=== PATIENT | female | born 1965 | race Caucasian/White ===

== ENCOUNTER → 2016-05-27 | Outpatient (CLI) | payer OTHER ==
--- NOTE | 2016-05-28 07:16 | MM ---
Reason for exam: additional evaluation requested from prior study. Last mammogram was performed 1 year and 4 months ago. History: Patient is postmenopausal. Family history of breast cancer in maternal grandmother at age 45 and breast cancer in maternal aunt at age 45. Benign US RT VAD breast biopsy of the right breast, December 14, 2012. Benign US right core biopsy of the right breast, January 26, 2006. Physical Findings: Nurse did not find any significant physical abnormalities on exam. MG Diagnostic Mammo w CAD JENNIFER Bilateral CC and MLO view(s) were taken. ML and spot compression MLO view(s) were taken of the left breast. Prior study comparison: January 21, 2015, bilateral MG diagnostic mammo w CAD JENNIFER. July 10, 2013, CAD bilateral diagnostic mammogram. November 30, 2012, bilateral digital screening mammo w/CAD. The breast tissue is heterogeneously dense. This may lower the sensitivity of mammography. Nodular asymmetric density upper outer quadrant right breast with 2 microclips, more defined from 2014 but similar to 2013, can be reassessed in 6 months. Nodular asymmetry inferior left breast measures 1.3cm and persists on additional views. These results were verbally communicated with the patient and result sheet given to the patient on 05/27/16. ASSESSMENT: Incomplete: need additional imaging evaluation, BI-RAD 0 RECOMMENDATION: Ultrasound of the left breast. (3-9 o'clock inferior half)
--- NOTE | 2016-05-28 07:19 | USB ---
Reason for exam: additional evaluation requested from abnormal screening. History: Patient is postmenopausal. Family history of breast cancer in maternal grandmother at age 45 and breast cancer in maternal aunt at age 45. Benign US RT VAD breast biopsy of the right breast, December 14, 2012. Benign US right core biopsy of the right breast, January 26, 2006. US Breast Limited LT Left breast ultrasound demonstrates two complex cystic mass versus cyst clusters measuring 0.65 x 0.63 x 0.49cm at 3 o'clock and a 1.2 x 0.45 x 0.93cm at 6 o'clock. The 6 o'clock lesion likely corresponds to the mammographic abnormality. These should be reassessed in 6 months. These results were verbally communicated with the patient and result sheet given to the patient on 05/27/16. ASSESSMENT: Probably benign, BI-RAD 3 RECOMMENDATION: Follow-up diagnostic mammogram in 6 months. (right breast) Ultrasound of the left breast in 6 months. (3 and 6 o'clock)
== END ==
LOC: RADMAMWWP 13:43
PROVIDERS: ATTEND Family Medicine
DX: R92.2 Inconclusive mammogram (principal); R92.8 Other abnormal and inconclusive findings on diagnostic imaging of breast
CPT/HCPCS: 76642; G0204

== ENCOUNTER → 2016-06-18 | Outpatient (CLI) | payer OTHER ==
--- NOTE | 2016-06-18 15:13 | US ---
EXAMINATION TYPE: US pelvis complete transvag DATE OF EXAM: 06/18/2016 3:05 PM COMPARISON: NONE CLINICAL HISTORY: N83.20 LT PREV.OVARIAN CYST. TECHNIQUE: Transvaginal (TV) and Transabdominal (TA) Date of LMP: 12 years prior EXAM MEASUREMENTS: Uterus: Surgically absent cm Endometrial Stripe: Surgically absent cm Right Ovary: 2.6 x 2.2 x 2.0 cm Left Ovary: not visualized due to overlying bowel gas TECHNOLOGIST IMPRESSION: 1. Uterus: surgically absent 2. Endometrium: surgically absent 3. Right Ovary: wnl 4. Left Ovary: not visualized due to overlying bowel gas 5. Bilateral Adnexa: wnl 6. Posterior cul-de-sac: wnl IMPRESSION: 1. Normal post hysterectomy pelvic ultrasound
== END | disposition home or self-care (01) ==
LOC: RADUSWWP 13:37
PROVIDERS: ATTEND Obstetrics & Gynecology
DX: N83.209 Unspecified ovarian cyst, unspecified side (principal); N83.9 Noninflammatory disorder of ovary, fallopian tube and broad ligament, unspecified; Z90.710 Acquired absence of both cervix and uterus
CPT/HCPCS: 36415; 76830; 76856; 86304

== ENCOUNTER → 2018-04-19 | Outpatient (CLI) | payer OTHER ==
[2018-04-19 13:26] LABS: Appearance,Urine Cloudy (Clear); Bacteria,Urine Rare /hpf; Bilirubin,Urine Negative (Negative); Blood,Urine Small (Negative); Color,Urine Yellow; Glucose,Urine (UA) Negative (Negative); Ketones,Urine Trace (Negative); Leukocyte Esterase,Urine Large (Negative); Mucus,Urine Occasional /hpf; Nitrite,Urine Negative (Negative); Protein,Urine Negative (Negative); RBC,Urine 9 /hpf (0-5); Specific Gravity,Urine 1.012 (1.001-1.035); Squamous Epithelial Cell,Urine 6 /hpf (0-4); Urobilinogen,Urine <2.0 mg/dL (<2.0); WBC,Urine >182 /hpf (0-5)
== END | disposition home or self-care (01) ==
LOC: LABWHC1 11:53
PROVIDERS: ATTEND Obstetrics & Gynecology
DX: N39.0 Urinary tract infection, site not specified (principal)
CPT/HCPCS: 81001; 87086

== ENCOUNTER 2018-08-03 12:23 | Emergency (ER) | payer OTHER ==
[2018-08-03] MEDS ORDERED: HYDROmorphone 1 MG/ML 1 ML SYRINGE IM STA (13:26)
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
[2018-08-03 17:13] VITALS: BP 135/60; PULSE 70; RESP 18; TEMP 98
== END 2018-08-03 15:00 | disposition home or self-care (01) ==
LOC: EC 12:23
DX: S39.012A Strain of muscle, fascia and tendon of lower back, initial encounter (principal); F17.200 Nicotine dependence, unspecified, uncomplicated; Z88.2 Allergy status to sulfonamides; Z88.1 Allergy status to other antibiotic agents; Z91.040 Latex allergy status; V89.2XXA Person injured in unspecified motor-vehicle accident, traffic, initial encounter; Y92.89 Other specified places as the place of occurrence of the external cause
CPT/HCPCS: 72131; 72192; 99284; 96372; J1170

== ENCOUNTER → 2018-09-04 | Outpatient (CLI) | payer OTHER ==
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
== END ==
LOC: RADMRIMAIN 11:32
PROVIDERS: ATTEND Nurse Practitioner Family
DX: M51.36 Other intervertebral disc degeneration, lumbar region (principal); Z98.890 Other specified postprocedural states
CPT/HCPCS: 72158; A9585